=== PATIENT | male | born 1950 | race Caucasian/White ===

== ENCOUNTER 2017-08-26 14:19 | Emergency (ER) | payer MEDICARE ==
[2017-08-26] MEDS ORDERED: ONDANSETRON HCL IV 4 MG/2 ML VIAL IV ONE (14:29)
[2017-08-26] MEDS ORDERED: 0.9 % SODIUM CHLORIDE 1,000 ML BAG IV ONE (14:29)
[2017-08-26] MEDS ORDERED: HYDROMORPHONE HCL 2 MG/ML VIAL IVP ONE (14:32)
[2017-08-26 14:38] LABS: BASO % 0.3 % (0-6); EOS % 0.8 % (0-6); GRAN % 73.2 % (47-80); HEMATOCRIT 42.3 % (42.0-52.0); HEMOGLOBIN 14.2 gm/dl (14.0-18.0); LYMPH % 18.8 % (16-45); MEAN CELL VOLUME 90.2 fl (81-97); MEAN CORPUSCULAR HEMOGLOBIN 30.3 pg (27-33); MEAN CORPUSCULAR HGB CONC 33.6 g/dl (32-36); MEAN PLATELET VOLUME 9.8 fl (7.4-10.4); MONO % 6.9 % (0-9); PLATELET COUNT 223 K/uL (130-400); RED BLOOD COUNT 4.69 M/uL (4.40-5.70); RED CELL DISTRIBUTION WIDTH 13.5 % (11.5-14.5); WHITE BLOOD COUNT W/O DIFF 8.6 K/uL (4.2-12.2)
--- NOTE | 2017-08-26 14:39 | Emergency Department Record ---
History of Present Illness - General Chief complaint: Flank Pain Stated complaint: LEFT FLANK PAIN Time Seen by Provider: 08/26/17 14:27 Source: Patient Mode of Arrival: Wheelchair Limitations: No limitations - History of Present Illness Initial comments: The patient is here due to the acute onset of L flank pain about 5 hours ago. The pain is severe and stabbing and does radiate to the LLQ. The patient has been nauseated but has not vomited. He did just have a renal US performed 6 days ago that demonstrated a 1.9x2.6 L renal pelvis stone that was not causing problems at the time. MD Complaint: Other Onset/Timin -: Hour(s) Location: Left flank Radiation: LUQ, LLQ Severity: Severe Severity scale (1-10): 9 Quality: Sharp Consistency: Constant Improves with: None Worsens with: None Reports: Blood in urine - Related Data Home Medications Medication Instructions Recorded Confirmed Last Taken Levothyroxine Sodium [Synthroid] 88 mcg PO DAILY 08/26/17 08/26/17 Unknown Metformin HCl 1,000 mg PO BID 08/26/17 08/26/17 Unknown Pravastatin Sodium [Pravachol] 80 mg PO DAILY 08/26/17 08/26/17 Unknown Sitagliptin Phosphate [Januvia] 80 mg PO DAILY 08/26/17 08/26/17 Unknown Previous Rx's Medication Instructions Recorded Hydrocodone/Acetaminophen [Sw[place] 1 - 2 each PO QID #12 tablet 08/26/17 5-325 Tablet] Allergies Allergy/AdvReac Type Severity Reaction Status Date / Time No Known Drug Intolerances Allergy Unknown Unverified 06/08/13 10:05 Allergies: Allergy Unknown Uncoded 06/08/13 10:05 Travel Screening - Travel/Exposure Within Last 30 Days Have you traveled within the last 30 days?: No Review of Systems Constitutional: Denies: Chills, Fever Eyes: Denies: Eye discharge ENT: Denies: Congestion Respiratory: Denies: Cough, Dyspnea Past Medical History - SOCIAL HISTORY Smoking Status: Former smoker Alcohol Use: Rare Drug Use: None - RESPIRATORY Hx Respiratory Disorders: No - CARDIOVASCULAR Hx Cardio Disorders: No - NEURO Hx Neuro Disorders: Yes Hx Headaches: Yes - GI Hx GI Disorders: Yes Hx Irritable Bowel: Yes - Hx Genitourinary Disorders: No - ENDOCRINE Hx Endocrine Disorders: Yes Hx Thyroid Disease: Yes - MUSCULOSKELETAL Hx Musculoskeletal Disorders: Yes - PSYCH Hx Psych Problems: No - HEMATOLOGY/ONCOLOGY Hx Hematology/Oncology Disorders: No Family Medical History Any Significant Family History?: No Physical Exam - General General Appearance: Alert, Oriented x3, Cooperative, Mild distress (due to L flank pain.) - Head Head exam: Atraumatic, Normocephalic - Eye Eye exam: Normal appearance, PERRL - Neck Neck exam: Normal inspection, Full ROM. negative: Tenderness - Respiratory Respiratory exam: Normal lung sounds bilaterally. negative: Respiratory distress - Cardiovascular Cardiovascular Exam: Regular rate, Normal rhythm, Normal heart sounds - GI/Abdominal GI/Abdominal exam: Soft, Tenderness (There is significant L sided abdominal tenderness.) - Extremities Extremities exam: Normal inspection, Full ROM, Normal capillary refill. negative: Tenderness Course Vital Signs 08/26/17 14:21 Temperature 97.6 F Pulse Rate 56 L Respiratory 20 Rate Blood Pressure 145/56 Pulse Ox 100 - Reevaluation(s) Reevaluation #1: The patient is doing a lot better. His pain is much improved and he is resting comfortably. 08/26/17 15:16 Reevaluation #2: The patient is doing very well at this time. I did discuss the case with Dr. Knox who is air defense control officer for Dr. Treadwell. Dr. Knox would like the patient to present to the [facility] at 8am tomorrow morning for further evaluation. 08/26/17 17:02 Medical Decision Making - Data Complexity MDM Data: Labs Ordered and/or Reviewed, X-Ray Ordered and/or Reviewed - Lab Data Result diagrams: 08/26/17 14:33 08/26/17 14:33 - Radiology Data Radiology results: Report reviewed (CT: 15x10 mm stone L UPJ with hydro and mild stranding.) Disposition Disposition: Discharge Clinical Impression: Ureteral calculi Disposition: Home, Self-Care Condition: (2) Stable Instructions: Flank Pain (ED) Additional Instructions: Please take the Alleve along with the Swanton for pain. Please present to the [facility] at 8am tomorrow for further evaluation to see Dr. Treadwell. Return to the ER for any increased pain, fever, or vomiting. The patient also is to be NPO past midnight and he is fully aware of that. Prescriptions: Hydrocodone/Acetaminophen [Sw[place] 5-325 Tablet] 1 - 2 each PO QID #12 tablet Referrals: PEPPER TREADWELL M.D. [MEDICAL DOCTOR] - Forms: Patient Portal Access Quality - Quality Measures Quality Measures: N/A - Blood Pressure Screening View Details: Yes Does Patient Have Any of the Following: No Blood Pressure Classification: Hypertensive Reading Systolic Measurement: 145 Diastolic Measurement: 56 Screening for High Blood Pressure: < First Hypertensive BP, F/U Documented > [ [id number]] First Hypertensive Follow-up Interventions: Referral to alternative/primary care provider.
[2017-08-26 14:48] LABS: BLOOD UREA NITROGEN 18 mg/dL (8-23); CREATININE 0.9 mg/dL (0.7-1.2); EST GLOMERULAR FILTRATION RATE > 60 mL/min
[2017-08-26 14:51] LABS: GLUCOSE,RANDOM 185 mg/dL (74-109)
[2017-08-26] MEDS ORDERED: KETOROLAC 30 MG/ML VIAL IVP ONE (15:42)
[2017-08-26 15:47] LABS: URINE APPEARANCE CLEAR; URINE BILIRUBIN NEGATIVE (NEGATIVE); URINE BLOOD TRACE-I (NEGATIVE); URINE COLOR YELLOW; URINE GLUCOSE (UA) NEGATIVE (NEGATIVE); URINE KETONE NEGATIVE (NEGATIVE); URINE LEUKOCYTE ESTERASE NEGATIVE (NEGATIVE); URINE NITRITE NEGATIVE (NEGATIVE); URINE UROBILINOGEN 0.2 E.U./dL (0.20 - 1.00)
[2017-08-26 15:57] LABS: URINE EPITHELIAL CELLS 0 - 2 (FEW); URINE WBC 0 - 2 (0-2/hpf)
[2017-08-26 15:58] LABS: URINE BACTERIA FEW; URINE CALCIUM OXALATE CRYSTALS FEW /hpf
[2017-08-26] MEDS ORDERED: HYDROCODONE/APAP 5/325MG TABLET PO ONE (17:07)
--- NOTE | 2017-08-27 11:17 | CT SCAN REPORT ---
EXAM: CT OF THE ABDOMEN AND PELVIS WITHOUT CONTRAST HISTORY: EXTREME BACK AND ABDOMINAL PAIN. MICROHEMATURIA FOR ONE WEEK. TECHNIQUE: Thin collimation helical CT examination of the abdomen and pelvis was performed without oral or intravenous contrast administration for the express purpose of evaluating the renal collecting systems for obstructing calculi. Lack of oral and IV contrast utilization limits evaluation of the bowel and solid viscera respectively. Comparison: Renal/retroperitoneal ultrasound dated 08/20/17 at 08:00. CT of the abdomen and pelvis with contrast dated 01/31/09. FINDINGS: There is minor dependent atelectasis in each lung base. The lung bases are otherwise clear and there is no pleural or pericardial effusion. The heart is not enlarged. There is mild atherosclerotic calcification of the visualized distal right coronary artery. The wall of the distal esophagus appears borderline prominent likely due to incomplete distention. The liver, spleen, pancreas, and adrenal glands are normal in appearance on this noncontrast examination. The gallbladder is unremarkable and no biliary ductal dilatation is seen. The kidneys are normal in position and smoothly marginated. No right nephrolithiasis, right renal mass, nor right obstructive uropathy. There is a large calcified stone in the left ureteropelvic junction measuring 15 mm in length x 10 mm in the oblique transverse diameter x 5.5 mm in the oblique AP diameter. There is associated mild to moderate left hydronephrosis with mild left perinephric fat stranding. A 3-4 mm nonobstructing calculus is present in the lower pole of the left kidney. No left renal mass. No intrinsic urinary bladder abnormality is seen. No pelvic mass, lymphadenopathy, or free pelvic fluid. There is diverticulosis of the distal colon without evidence of diverticulitis. The appendix is visualized and normal in appearance. No evidence of bowel obstruction nor gross bowel wall thickening. There is a small lobulated fat filled umbilical/periumbilical hernia appearing uncomplicated. There is mild fat density prominence within each inguinal canal, left greater than right consistent with spermatic cord lipomas or fat within small inguinal hernia sacs. No lytic or blastic bone lesion. There are degenerative changes scattered within the visualized spine and hips. IMPRESSION: 1. LARGE OBSTRUCTING CALCULUS IN THE LEFT URETEROPELVIC JUNCTION MEASURING 15 X 10 X 5.5 MM. THERE IS ASSOCIATED MILD TO MODERATE LEFT HYDRONEPHROSIS WITH PERINEPHRIC FAT STRANDING. SUPERIMPOSED INFECTION WOULD BE DIFFICULT TO EXCLUDE. 3-4 MM NONOBSTRUCTING CALCULUS IN THE LOWER POLE OF THE LEFT KIDNEY. 2. COLONIC DIVERTICULOSIS WITHOUT EVIDENCE OF DIVERTICULITIS. JOB NUMBER: [id number] [facility]
== END 2017-08-26 17:44 | disposition home or self-care (01) ==
LOC: ER 14:19
DX: N13.2 Hydronephrosis with renal and ureteral calculous obstruction (principal); R11.0 Nausea; Z87.891 Personal history of nicotine dependence
CPT/HCPCS: 99284 ×2; 96374; 96375; 96361; 85025; 80048; 81001; 74176; J1885; J2405; J1170; J7030